=== PATIENT | male | born 1985 | race Caucasian/White ===

== ENCOUNTER 2023-12-13 18:40 | Inpatient (IN) | payer SELFPAY ==
[2023-12-13 19:12] LABS: #Eosinphils 0.2 thou/uL (0.0-0.7); #Monocytes 0.3 thou/uL (0.11-0.59); #Neutrophils 4.8 thou/uL (1.40-6.50); %Basophils 0.4 % (0.0-1.0); %Eosinophils 3.2 % (0.0-10.0); %Monocytes 5.6 % (0.0-10.0); %Neutrophils 83.3 % (42.0-75.0); Hematocrit 42.5 % (42.0-52.0); Hemoglobin 15.6 g/dL (14.0-18.0); Mean Corpuscular HGB CONC 36.7 g/dL (32.0-36.0); Mean Corpuscular Hemoglobin 33.7 pg (27.0-31.0); Mean Corpuscular Volume 91.8 fl (78.0-98.0); Mean Platelet Volume 9.2 fL (7.4-10.4); RBC Distribution Width 12.5 % (11.5-14.5); Red Blood Cell (RBC) Count 4.63 mill/uL (4.70-6.10); White Blood Cell (WBC) Count 5.7 10x3/uL (4.8-10.8)
[2023-12-13] MEDS ORDERED: Ondansetron PF 4 MG/2 ML Vial ONE ×2 (19:14→19:15)
[2023-12-13] MEDS ORDERED: LORazepam 2 MG/ML SYR.(CARPUJECT) ONE (19:14)
[2023-12-13] MEDS ORDERED: levETIRAcetam 500 MG (5 mL) VIAL ONE (19:18)
[2023-12-13 19:31] LABS: ALT (SGPT) 68 U/L (8-55); AST (SGOT) 138 U/L (5-34); Albumin 4.9 g/dL (3.5-5.0); Alkaline Phosphatase 89 U/L (40-110); Anion Gap 22 mmol/L (10-20); BUN (Urea Nitrogen) 6 mg/dL (8.9-20.6); Bilirubin, Total 2.4 mg/dL (0.2-1.2); Calc. Creatinine Clearance 0 mL/min (70-130); Calcium 9.7 mg/dL (7.8-10.44); Carbon Dioxide 23 mmol/L (22-29); Chloride 96 mmol/L (98-107); Estimated GFR 113; Globulin 3.5 g/dL (2.4-3.5); Glucose 142 mg/dL (70-105); Potassium 3.2 mmol/L (3.5-5.1); Protein, Total 8.4 g/dL (6.0-8.3); Sodium 138 mmol/L (136-145)
[2023-12-13 19:47] LABS: Troponin I 0.023 ng/mL (< 0.028)
[2023-12-13 19:51] LABS: Platelet Count 88 10x3/uL (130-400)
[2023-12-13 20:05] LABS: Acetaminophen Less than 10 mcg/mL (10.0-30.0); Alcohol Less than 10.0 mg/dL (Less than 10); Lipase 47 U/L (8-78); Salicylate Less than 8.0 mg/dL (15.0-30.0)
[2023-12-13] MEDS ORDERED: Thiamine HCl 200 MG/2 ML VIAL ONE (20:15)
[2023-12-13 20:36] LABS: Anisocytosis SLIGHT = 6-15 cells HPF (0-5); CellaVision Operator ID LAB.JMM; Macrocytosis SLIGHT = 6-15 cells HPF (0-5); Platelet Adequacy Comment Platelets Decreased
[2023-12-13] MEDS ORDERED: Acetaminophen 325 MG TAB PO PRN (21:41)
[2023-12-13] MEDS ORDERED: Ondansetron PF 4 MG/2 ML Vial IVP PRN (21:41)
[2023-12-13] MEDS ORDERED: Lorazepam 1 MG TAB PO PRN (21:42)
[2023-12-13] MEDS ORDERED: Lorazepam 2 MG/ML VIAL IM PRN (21:42)
[2023-12-13] MEDS ORDERED: Labetalol HCl 100 MG/20 ML VIAL SLOW IVP PRN (21:44)
[2023-12-13] MEDS ORDERED: Electrolyte Replacement Protocol 1 EACH FS SCH (21:45)
[2023-12-13 22:29] VITALS: BMI 25.1
[2023-12-13 22:29] LABS: Magnesium 1.2 mg/dL (1.6-2.6); Phosphorus 2.2 mg/dL (2.3-4.7)
[2023-12-13] MEDS: Sodium Chloride 0.9% 1,000 ML IV SCH (23:09)
[2023-12-13] MEDS: Folic Acid 1 MG TAB PO SCH (23:10)
[2023-12-13] MEDS: Potassium Chloride 20 MEQ TAB PO SCH (23:10)
[2023-12-13] MEDS: Multivit, Therapeutic 1 TAB PO SCH (23:10)
[2023-12-13] MEDS: Lorazepam 1 MG TAB PO SCH (23:10)
[2023-12-13] MEDS: Pantoprazole 40 MG VIAL IVP SCH (23:11)
[2023-12-13] MEDS: Magnesium Sulfate In Water 4 GM in Premix 1 BAG IVPB SCH (23:11)
[2023-12-13] MEDS ORDERED: Dexmedetomidine In 0.9 % NaCl 100 ML IVPB SCH (23:30)
[2023-12-14 05:37] LABS: Amphetamine Not Detected (NotDetected); Barbiturates Screen Not Detected (NotDetected); Benzodiazepine Screen Detected (NotDetected); Cocaine Metabolite Screen Not Detected (NotDetected); Methadone Not Detected (NotDetected); Methamphetamine Not Detected (NotDetected); Opiate Screen Not Detected (NotDetected); Oxycodone Screen Not Detected (NotDetected); Phencyclidine (PCP) Not Detected (NotDetected); THC/Cannabinoid Screen Not Detected (NotDetected); Tricyclic Screen Not Detected (NotDetected)
[2023-12-14 07:37] LABS: #Monocytes 0.5 thou/uL (0.11-0.59); %Basophils 0.9 % (0.0-1.0); %Eosinophils 0.5 % (0.0-10.0); %Lymphocytes 19.8 % (21.0-51.0); %Monocytes 10.9 % (0.0-10.0); %Neutrophils 67.7 % (42.0-75.0); Hemoglobin 13.4 g/dL (14.0-18.0); Mean Corpuscular HGB CONC 35.3 g/dL (32.0-36.0); Mean Corpuscular Hemoglobin 33.3 pg (27.0-31.0); Mean Corpuscular Volume 94.3 fl (78.0-98.0); Mean Platelet Volume 9.8 fL (7.4-10.4); RBC Distribution Width 12.4 % (11.5-14.5); Red Blood Cell (RBC) Count 4.03 mill/uL (4.70-6.10); White Blood Cell (WBC) Count 4.4 10x3/uL (4.8-10.8)
[2023-12-14 07:54] LABS: ALT (SGPT) 54 U/L (8-55); AST (SGOT) 126 U/L (5-34); Albumin 4.1 g/dL (3.5-5.0); Alkaline Phosphatase 69 U/L (40-110); Anion Gap 14 mmol/L (10-20); BUN (Urea Nitrogen) 7 mg/dL (8.9-20.6); Bilirubin, Total 2.4 mg/dL (0.2-1.2); Calc. Creatinine Clearance 145 mL/min (70-130); Calcium 8.5 mg/dL (7.8-10.44); Carbon Dioxide 27 mmol/L (22-29); Chloride 100 mmol/L (98-107); Estimated GFR 118; Globulin 2.7 g/dL (2.4-3.5); Glucose 76 mg/dL (70-105); Potassium 3.1 mmol/L (3.5-5.1); Protein, Total 6.8 g/dL (6.0-8.3); Sodium 138 mmol/L (136-145)
[2023-12-14 08:03] LABS: INR-International Normal Ratio 1.2; PTT 30.3 sec (22.9-36.1); Prothrombin Time 14.9 sec (12.0-14.7)
[2023-12-14 08:25] LABS: Platelet Count 70 10x3/uL (130-400)
[2023-12-14] MEDS: levETIRAcetam 500 MG (5 mL) VIAL SLOW IVP SCH (08:27)
[2023-12-14] MEDS: Pantoprazole 40 MG VIAL IVP SCH (08:30)
[2023-12-14] MEDS: Multivit, Therapeutic 1 TAB PO SCH (08:30)
[2023-12-14] MEDS: Folic Acid 1 MG TAB PO SCH (08:30)
[2023-12-14 09:28] LABS: CK (CPK) 1371 U/L (30-200)
[2023-12-14] MEDS: Magnesium 2 GM/50 ML(in water) 2 GM in Premix 1 BAG IVPB SCH (14:48)
[2023-12-14] MEDS: Potassium Chloride 20 MEQ TAB PO SCH (14:48)
[2023-12-14] MEDS: cloNIDine 0.1mg/24 Hour PATCH TD SCH (15:33)
[2023-12-14 17:37] VITALS: TEMP 98.2
[2023-12-14] MEDS: Lorazepam 2 MG/ML VIAL SLOW IVP SCH (20:15)
[2023-12-14] MEDS: Metoprolol Tartrate 5 MG (5 mL) VIAL IVP SCH (20:22)
[2023-12-14] MEDS: Thiamine HCl 200 MG/2 ML VIAL SLOW IVP SCH (20:23)
[2023-12-14] MEDS: Lorazepam 2 MG/ML VIAL SLOW IVP PRN (20:24)
[2023-12-14] MEDS ORDERED: Lorazepam 1 MG TAB PO PRN (21:43)
[2023-12-15] MEDS ORDERED: Lorazepam 2 MG/ML VIAL SLOW IVP SCH (06:00)
[2023-12-15] MEDS ORDERED: Lorazepam 2 MG/ML VIAL SLOW IVP PRN (20:00)
[2023-12-15] MEDS ORDERED: Lorazepam 1 MG TAB PO PRN (21:43)
[2023-12-15] MEDS ORDERED: Lorazepam 0.5 MG TAB PO SCH (23:59)
[2023-12-16] MEDS ORDERED: Lorazepam 2 MG/ML VIAL SLOW IVP SCH (06:00)
[2023-12-16] MEDS ORDERED: Lorazepam 2 MG/ML VIAL SLOW IVP PRN (20:00)
[2023-12-16] MEDS ORDERED: Thiamine 100 MG TAB PO SCH (21:00)
[2023-12-16] MEDS ORDERED: Lorazepam 0.5 MG TAB PO PRN (21:43)
[2023-12-17] MEDS ORDERED: Lorazepam 2 MG/ML VIAL SLOW IVP PRN (06:00)
== END 2023-12-14 21:00 | disposition left against medical advice (07) | DRG 894 ==
LOC: ERS 18:40 → IMCU/EMU 20:55
PROVIDERS: ADMIT Internal Medicine; ATTEND Family Medicine
DX: F10.231 Alcohol dependence with withdrawal delirium (principal); M62.82 Rhabdomyolysis; I10 Essential (primary) hypertension; Z82.3 Family history of stroke; R56.9 Unspecified convulsions; D69.6 Thrombocytopenia, unspecified; E87.6 Hypokalemia; E83.42 Hypomagnesemia; Z79.899 Other long term (current) drug therapy; R74.01 Elevation of levels of liver transaminase levels; Z91.148 Patient's other noncompliance with medication regimen for other reason
CPT/HCPCS: 36415; 70450; 71045; 80053; 80306; 80307; 82140; 82550; 83690; 83735; 84100; 84484; 85025; 85610; 85730; 93005; 95712; 95819; 96365; 96375; C9113; J1953; J2060; J2405; J3411; J3475; J3490; J7050